=== PATIENT | female | born 1980 | race Caucasian/White ===

== ENCOUNTER 2017-04-13 19:47 | Emergency (ER) | payer OTHER ==
[~2017-04-13] VITALS: Ht 167.6 cm; Wt 77.2 kg
[~2017-04-13 19:47] MED LIST: KLO1T PO; OMEP20TA86 PO; ONDA4TAB9 PO; ONDA8TAB10 PO; OXYC1TAB24 PO; PROM25TA14 PO; SODI1TAB2 PO; TRAZ-118 PO
[2017-04-13 19:49] VITALS: BP 111/61; PULSE 64; RESP 16; O2SAT 99
--- NOTE | 2017-04-13 19:54 | ED.REPORT ---
HPI-Dyspnea / Wheezing Date of Service Apr 13, 2017 ED Provider: José Antonio Schaffer MD Pt is a 36 y/o female w/ a hx of syncopal bradycardic episodes, anxiety and panic attacks, recurrent pyelonephritis, presenting to the ED c/o right flank pain onset 3 days ago. The patient has had symptomatic bradycardia for the past year causing syncopal episodes. Today, she experienced shortness of breath for 20 minutes followed by dizziness resulting in a syncopal episode and fell in her backyard while she was raking. She now complains of right flank pain which she describes as kidney pain caused by pyelonephritis which she gets recurrently. She also has panic disorder and has had similar episodes of shortness of breath and syncope associated with anxiety. This event was not witnessed and she does not know if she experienced chest pain. The patient states this episode was more like a bradycardic episode instead of a panic episode as she has not been anxious recently. Since the episode, she has been experiencing mild dizziness since the episode. She c/o associated nausea, vomiting. Pt denies any current CP or SOB, fever, chills, diarrhea. The patient states she hasn't had any alcohol for 3 years but then says that she had wine with lunch today. Nursing Notes Stated Complaint: DIFFICULTY BREATHING,SEVERE RIGHT FLANK PAIN Chief Complaint: Respiratory Complaints Nursing Notes Reviewed: Yes Allergies: Coded Allergies: diphenhydramine (Verified Adverse Reaction, Severe, 05/04/16) cause over sedation hydrocodone (Verified Adverse Reaction, Mild, vomiting, 05/04/16) metoclopramide (Verified Adverse Reaction, Mild, Restlessness, 05/04/16) Uncoded Allergies: NSAIDS (Allergy, Unknown, 05/04/16) Scheduled Ciprofloxacin (Cipro) 500 Mg Tablet 500 MG PO BID Ferrous Sulfate (Iron) 325 Mg Tablet 325 MG PO BID Omeprazole (Omeprazole) 20 Mg Tablet.dr 20 MG PO BID Sodium Chloride (Sodium Chloride) 1 Gm Tablet 1 GM PO DAILY Trazodone (Trazodone) 100 Mg Tablet 100 MG PO HS Scheduled PRN Clonazepam (Clonazepam) 1 Mg Tablet 2 MG PO TID PRN PRN For Anxiety Ondansetron ODT (Zofran ODT) 4 Mg Tablet 4 MG PO Q4H PRN PRN For Nausea Ondansetron ODT (Ondansetron ODT) 8 Mg Tab.rapdis 4 MG PO QID PRN PRN nause Ondansetron ODT (Ondansetron ODT) 8 Mg Tab.rapdis 8 MG PO Q4H PRN PRN For Nausea Promethazine (Promethazine) 25 Mg Tablet 25 MG PO Q6H PRN PRN For Nausea oxyCODONE-Acetaminophen 5-325 mg (oxyCODONE-Acetaminophen 5-325 mg) 1 Each Tablet 1-2 EACH PO q6 hours PRN PRN For Pain General Time Seen by MD: 19:53 Chief Complaint Shortness of breath Hx Obtained From: Patient Arrived By: Walk-in Sudden in Onset?: No Onset Occurred: 3 days ago Symptom Duration: Since onset Quality: Painful Severity: Current: Moderate Severity: Maximum: Moderate Past Medical History Past Medical History Notes: PCP: Dr. Lnodon Admit 02/2016 for liver laceration s/p fall, symptomatic bradycardia Past Medical History Gastric ulcer in 2011, requiring blood transfusion Patient seen in ED in June, following an episode of syncope that occurred at home caused by bradycardia Admission to [facility] in 2013 for bradycardic arrhythmia Discovery of bilateral breast masses by her PCP Anxiety and panic attacks which sometimes cause syncope - medically treated GERD Recurrent pyelonephritis Past Surgical History Breast reduction Panniculectomy (following significant weight loss) C-sections Tonsillectomy Appendectomy Smoking History Never Smoker Social History Alcohol Use: "Social" Drug Use: Denies drug use Other Social History: , Lives with children Ambulatory Status Independent Review of Systems Constitutional: Denies: Chills, Fever Respiratory: Reports: Shortness of breath, Denies: Non-productive cough Cardiovascular: Denies: Chest pain, Dyspnea on exertion Complete sys rev & neg: except as marked. GI: Reports: Nausea, Vomiting, Denies: Abdominal pain Female: Reports: Flank pain Neurologic: Reports: Change LOC, Syncope Psychiatric: Denies: Anxiety Physical Exam Initial Vital Signs Vital Signs (First) Date Time Temp Pulse Resp B/P Pulse Ox O2 Delivery O2 Flow Rate FiO2 04/13/17 19:49 37 64 16 111/61 99 Room Air Initial VS: Reviewed, Vital signs normal Head / Eyes: Atraumatic, Normocephalic, PERRL ENT: Mucous membranes moist, Conjunctiva normal, No scleral icterus Extremities: Vascular intact, Neuro intact, No swelling Skin: Warm, Dry, No cyanosis Psychiatric: Mood/affect normal, Behavior normal, Normal thought content General/Constitutional: Awake, Alert, No acute distress, Well appearing, Cooperative, Not toxic appearing Neck: Atraumatic, Supple, No meningismus, Full range of motion Respiratory / Chest: Breath sounds NL, Breath sounds = bilat, No respiratory distress, No rales, No rhonchi, No wheezing, No retractions, No stridor Cardiovascular: Heart rate NL, Regular rhythm, No gallop, No rubs, Cap refill not delayed, Peripheral circulation NL Holosystolic murmur left upper sternal border, mild Back: Full range of motion, Painless range of motion She winces and yells out in pain before I percussed the costovertebral angle Neurologic: Oriented X3, Speech NL, No motor deficits, No sensory deficits, CN II - XII intact, Cerebellar NL, Memory NL Rectum / Perineum: Blood - occult heme -, No gross blood Interpretation & Diagnostics Lab Results Interpretation Result Diagram: 04/13/17204104/13/172041 Test 04/13/17 20:06 04/13/17 20:42 04/13/17 21:29 Hold Urine Received (Received) White Blood Count 9.6th/mm3 (3.8-10.1) Red Blood Count 3.66mil/mm3 (3.90-5.20) Hemoglobin 8.4g/dL (12.0-15.6) Hematocrit 27.7% (35.0-46.0) Mean Corpuscular Volume 75.7fL (81-100) Mean Corpuscular Hemoglobin 23.0pg (27.0-35.0) Mean Corpuscular Hemoglobin Concent 30.3% (32.0-37.0) Red Cell Distribution Width 18.2% (12.3-15.4) Platelet Count 328bil/L (150-400) Neutrophils (%) (Auto) 61.6% (40-74) Lymphocytes (%) (Auto) 26.2% (14-46) Monocytes (%) (Auto) 9.1% (4-12) Eosinophils (%) (Auto) 2.4% (0-5) Basophils (%) (Auto) 0.3% (0-3) Sodium Level 138mEq/L (134-144) Potassium Level 3.6mEq/L (3.5-5.2) Chloride Level 103mEq/L (97-108) Carbon Dioxide Level 20mmol/L (18-29) Blood Urea Nitrogen 15mg/dL (6-20) Creatinine 0.62mg/dL (0.57-1.00) Estimat Glomerular Filtration Rate 154mL/min (>59) Glucose Level 104mg/dL (60-99) Lactic Acid Level 1.6mmol/L (0.4-2.0) Calcium Level 8.6mg/dL (8.5-10.1) Magnesium Level 2.0mg/dL (1.6-2.6) Total Bilirubin 0.2mg/dL (0.0-1.2) Aspartate Amino Transf (AST/SGOT) 21U/L (0-50) Alanine Aminotransferase (ALT/SGPT) 17U/L (0-32) Alkaline Phosphatase 58U/L (25-150) Troponin T 0.010ug/L (0.0-0.011) Total Protein 7.2g/dL (6.4-8.4) Albumin 4.1g/dL (3.4-5.0) Lipase 52U/L (13-60) Hold Pacheco Top Tube Received (Received) Alcohols < 10mg/dL (0-10) Urine Color Yellow (YELLOW) Urine Appearance Hazy (CLEAR,HAZY) Urine pH 6.5 (5.0-8.0) Urine Specific [place] 1.015 (1.003-1.035) Urine Protein Negativemg/dL (NEG,TRACE) Urine Glucose (UA) Negativemg/dL (NEGATIVE) Urine Ketones Negativemg/dL (NEGATIVE) Urine Occult Blood Large (NEGATIVE) Urine Nitrite Positive (NEGATIVE) Urine Bilirubin Negative (NEGATIVE) Urine Urobilinogen Normalmg/dL (NORMAL) Urine Leukocyte Esterase Large (NEGATIVE) Urine RBC >50/hpf (0-2) Urine WBC >50/hpf (0-5) Urine Epithelial Cells Few/hpf (NONE-MOD) Urine Crystals None seen (NONE SEEN) Urine Bacteria Moderate/hpf (NONE-FEW) Urine Hyaline Casts None/lpf (NONE) Urine Granular Casts None seen (NONE SEEN) Urine Waxy Casts None seen (NONE SEEN) Urine Red Blood Cell Casts None seen (NONE SEEN) Urine White Blood Cell Casts None seen (NONE SEEN) Urine Mucus None seen (None Seen) Urine Trichomonas None seen (NONE SEEN) Urine Yeast None (NONE SEEN) Urinalysis Comment None Urine Culture Reflexed Indicated Urine Opiates Screen Negative Urine Methadone Screen Negative Urine Barbiturates Screen Negative Urine Amphetamines Screen Negative Urine Benzodiazepines Screen Negative Urine Cocaine Metabolite Screen Negative Urine Cannabinoids Screen Positive ECG Interpretation ECG Interpretation: Sinus rhythm rate 59 T wave inversions in V1 and AvR No change from prior Time: 21:17 Interpreted by: ED physician Normal ECG Interpretation: No acute ischemic changes X-Ray Chest Interpretation Chest Xray Interpretation: IMPRESSION: No acute pulmonary process. Dictated by: Parul Martinez M.D. on 04/13/2017 at 21:01 Approved by: Parul Martinez M.D. on 04/13/2017 at 21:02 View: Portable, 1 view Interpretation / Wet Read by: Interpret - Radiologist Re-Eval/Medical Decision Med Decision/Clinical Course 36-year-old female history of bradycardia and panic attacks presenting with syncopal event and urinary tract infection symptoms. She reports dysuria and right flank pain times several weeks. She reports dizziness today and dyspnea prior to syncopal event. She reports multiple syncopal events in the past which have been related to panic attacks. She was also admitted for symptomatically bradycardia one year ago was discharged with plans for no pacemaker on salt tabs. She does have a digital design engineer. While she was here she did not have any episodes of bradycardia. She did have episodes of hypotension with maps in the 50s. Urine was positive for infection. She had no CVA tenderness. She refuses CT scan. She requested to go home. Cannot rule out symptomatically bradycardia though none loss she was here. Her orthostatics were negative. She has no focal neurological deficits. Cannot rule out vasovagal. I did discuss the case with cardiology Dr. Sykes who thought she could be discharged home with plans for a Holter monitor and follow-up with her digital design engineer. She agrees with plan and will return if she has any dizziness, chest pain, shortness breath, lightheadedness, worsening symptoms. Discharged with antibiotics for her urinary tract infection with plan to follow up with primary doctor tomorrow. Re-Evaluation/Progress : Time of Eval: 22:23 Re-Evaluation/Progress Note: Pt rechecked. Discussed lab findings discharge vs admission. She would like to be discharged at this time. F/U instructions and RTER warnings given. All questions addressed. Consultation : Referral / Consult Name: Ab Sykes MD Consulted With: Cardiology Call Returned at: 23:23 Clay Transporter: Agrees with eval, Agrees with plan Counseled Regarding: Diagnosis, Lab results, Need for follow-up, When/why to return to ED Discharge & Departure Impression: Primary Impression: UTI (urinary tract infection) Urinary tract infection type: site unspecified Hematuria presence: without hematuria Qualified Code: N39.0 - Urinary tract infection, site not specified Additional Impressions: Anemia Anemia type: unspecified type Qualified Code: D64.9 - Anemia, unspecified Episode of syncope Syncope type: unspecified Qualified Code: R55 - Syncope and collapse Disposition: Home Discharge Condition All VS Reviewed: Yes Condition: Stable Patient Instructions: Urinary Tract Infection in Women (ED) Additional Instructions: Labs today showed that you are anemic and your urine showed signs of infection. Take the full course of antibiotics as prescribed for the UTI. Take the iron for the anemia. You have chosen to be discharged today. The digital design engineer agrees that you can be discharged. Follow-up with your primary care doctor tomorrow for a recheck. You may need a Holter monitor to discover if there are any heart rate or rhythm abnormalities if you experience another syncopal event. Follow-up with your digital design engineer and primary doctor regarding your syncopal episode. If you are unable to get an appointment with them you can schedule an appointment with Dr. Sykes. Return to the emergency department for increased pain, high fever, persistent vomiting, chest pain, passing out, trouble breathing, or for other concerning symptoms. Referrals: Miguel London MD (PCP) Ab Sykes MD Attestation Portions of this note were transcribed by Leonid Da Silva. I, Dr. Schaffer, personally performed the history, physical exam and medical decision-making; I reviewed and confirmed the accuracy of the information in the transcribed note. Signed by Latia Carmichael, 04/13/172014 copies to: Miguel London MD; Ab Sykes MD, Ben M MD Apr 13, 2017 19:54 LEONID DA SILVA Apr 13, 2017 20:04
[2017-04-13] MEDS ORDERED: 0.9% Sodium Chloride 1,000 ML IV ONE (20:36)
[2017-04-13] MEDS ORDERED: Ondansetron 2 mg/mL 2 mL Inj IVPUSH PRN (20:40)
[2017-04-13 20:51] LABS: BASOPHILS % (AUTO) 0.3 % (0-3); EOSINOPHILS % (AUTO) 2.4 % (0-5); MONOCYTES % (AUTO) 9.1 % (4-12); Mean Corpuscular Volume 75.7 fL (81-100); NEUTROPHILS % (AUTO) 61.6 % (40-74); Platelet Count 328 bil/L (150-400)
--- NOTE | 2017-04-13 21:04 | DRSVH ---
PROCEDURE: X-RAY CHEST ONE VIEW, PORTABLE ([id number]) INDICATIONS: syncope TECHNIQUE: One view of the chest was acquired. COMPARISON: [facility], CR, XR CHEST 1VW (PORTABLE), 03/25/2016, 18:16. FINDINGS: Surgical changes and devices: None. Lungs and pleura: No pleural effusions or pneumothorax. Lungs are clear. Mediastinum: Mediastinal contours appear normal. Heart size is normal. Bones and chest wall: No suspicious bony lesions. Overlying soft tissues appear unremarkable. IMPRESSION: No acute pulmonary process. Dictated by: Parul Martinez M.D. on 04/13/2017 at 21:01 Approved by: Parul Martinez M.D. on 04/13/2017 at 21:02
[2017-04-13 21:11] LABS: TROPONIN T 0.01 ug/L (0.0-0.011)
[2017-04-13 21:47] LABS: APPEARANCE,URINE HAZY (CLEAR,HAZY); COLOR,URINE YELLOW (YELLOW); OCCULT BLOOD,URINE LARGE (NEGATIVE); PH,URINE 6.5 (5.0-8.0); UROBILINOGEN,URINE NORMAL (NORMAL)
[2017-04-13 21:49] VITALS: BP 99/53; PULSE 58; RESP 16; O2SAT 100
[2017-04-13 22:04] VITALS: BP_SYST 105; BP_SYST 108; BP_SYST 96; BP_DIAS 40; BP_DIAS 43; BP_DIAS 46; PULSE 59; PULSE 69; PULSE 78; O2SAT 100
[2017-04-13] MEDS ORDERED: CIPR-231 PO (22:23)
[2017-04-13] MEDS ORDERED: HYDROcodone-APAP 10-325 mg PO ONE (22:25)
[2017-04-13] MEDS ORDERED: cefTRIAXone Inj 1,000 MG in Dextrose 5% Minibag Plus 50 ML IV ONE (22:25)
[2017-04-13] MEDS ORDERED: FERR325T39 PO (22:30)
[2017-04-13 23:43] VITALS: BP 89/34; PULSE 63; RESP 20; O2SAT 99
== END 2017-04-13 23:44 | disposition home or self-care (01) ==
LOC: SED 19:47
DX: N39.0 Urinary tract infection, site not specified (principal); D64.9 Anemia, unspecified; R55 Syncope and collapse; K21.9 Gastro-esophageal reflux disease without esophagitis; Z88.5 Allergy status to narcotic agent; Z88.8 Allergy status to other drugs, medicaments and biological substances
CPT/HCPCS: 36415; 71010; 80053; 81000; 81025; 83605; 83690; 83735; 84484; 85025; 87086; 87088; 93005; 96365; 96375; 99285; G0480; J0696; J1885; J2405; J7030